=== PATIENT | female | born 1985 | race African-American/Black ===

== ENCOUNTER 2018-09-13 10:52 | Inpatient (IN) | payer OTHER ==
[~2018-09-13] VITALS: Ht 167.6 cm; Wt 69.4 kg
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
[2018-09-13] MEDS ORDERED: Z GUARD REMEDY 2 OZ OINT TP PRN ×2 (17:30→19:30)
[2018-09-13] MEDS ORDERED: HYDROCODONE/APAP 5/325MG 1 EACH TABLET PO PRN (17:30)
[2018-09-13] MEDS ORDERED: MAGNESIUM HYDROXIDE 30 ML UDC PO PRN ×2 (17:30→19:30)
[2018-09-13] MEDS ORDERED: MAG HYDROX/AL HYDROX/SIMETH 30 ML UDC PO PRN ×2 (17:30→19:30)
[2018-09-13 18:00] VITALS: BP 126/97
--- NOTE | 2018-09-13 18:13 | NUR ---
EYEGLASS MAKER/MED RECON PATIENT UNABLE TO PROVIDE INFO RE: HOME MEDICATION. NO INFO NOTED FROM ANY MEDICAL RECORDS SENT WITH THE PATIENT FROM [facility] [address] [facility]. PER PATIENT REQUEST, AUTHORIZATION FOR USE OR DISCLOSE OF HEALTH INFORMATION WAS FAXED TO [facility], SPOKE TO NURSING COPPER ROLLER HANDLER PRINTING FROM [facility] AND STATED "IT SAY'S NO MEDICATION REPORTED". PER PATIENT REQUEST, AUTHORIZATION FOR USE OR DISCLOSE OF HEALTH INFORMATION WAS FAXED TO [facility], SPOKE TO THE NURSING COPPER ROLLER HANDLER PRINTING AND STATED "CALL ON SATURDAY, MEDICAL RECORDS IS CLOSED TODAY". PER PATIENT REQUEST, CALLED [facility] AT [phone]. SPOKE TO STAFF AND STATED "PATIENT IS A NEW PATIENT, I CAN'T ACCESS ANY OF HER FILE OR RECORDS". PATIENT AND PRIMARY NURSE MADE AWARE. ALSO, PATIENT WAS NOTIFIED TO ASK FAMILY TO BRING MEDICATION SUPPLY FROM HOME.
[2018-09-13] MEDS ORDERED: ACETAMINOPHEN 325 MG TABLET PO PRN (19:30)
[2018-09-13] MEDS ORDERED: ONDANSETRON HCL/PF 4 MG/2 ML VIAL IVP PRN (19:30)
--- NOTE | 2018-09-13 19:37 | NUR ---
[employer] NOTES PT ENDORSED TO NOC NURSE FOR JUSTIN. ALL NEEDS ATTENDED TO. SEEN BY KELSEY OCHOA.
[2018-09-13 20:15] VITALS: BP 119/88
--- NOTE | 2018-09-13 20:18 | NUR ---
INTIAL NURSING NOTE: A/O X4 SITTING UP IN BED. TELE S/R 113. RIGHT UPPER CHEST WALL PERM A CATH, LEFT UPPER ARM SHUNT POSTIVE THRILL AND BRUIT. 1-1 FOR SAFETY . DIET REMAINS NPO FOR DX PANCREATITIS. C/O 7-10 PAIN REFUSING ORAL PAIN MEDS NO S/L . PT WAITING FOR MIDLINE PLACEMENT. TOP SIDERAILS UP CALL LIGHT WITHIN REACH. BED IN LOWEST POSIION WITH BED WHEELS LOCKED.
[2018-09-13] MEDS: MORPHINE SULFATE INJ 2 MG/ML DISP.SYRIN IV PRN (22:27)
[2018-09-13] MEDS: IV NS 0.9% 1,000 ML IV PRN (22:30)
--- NOTE | 2018-09-13 22:33 | NUR ---
MIDLINE RN: INSERTED 18GA MIDLINE TO RIGHT UPPER BRACHIAL BY MIDLINE NURSE BALDEMAR. ALSO, SHE CLEANED AND CHANGED THE PERM CATH DRESSING TO RIGHT UPPER CHEST WALL. IN FORMED TALENT MANAGEMENT MANAGER THAT THE TWO SUTURES HOLDING THE PERM CATH IN PLACED WERE DISCONNECTED FROM PT'S CHEST WALL. I WILL INFORM DAY SHIFT TO FORWARD TO ATTENDING.
--- NOTE | 2018-09-13 22:43 | NUR ---
NURSING: STARTED O2 @ 2 l N/C FOR 02 sAT ON R/A @ 92%. cHARGE NURSE ADMINISTERED mORPHINE 1 MG IVP FOR GENERAL PAIN 8-10. STARTED N.S. 0.9% @ 75CC HR TO RIGHT UPPER ARM MIDLINE. cURRENTLY C/O 2-10 PAIN AND RESTING COMFORTABLY.
[2018-09-14 00:10] VITALS: BP 122/82
--- NOTE | 2018-09-14 00:12 | NUR ---
Lying in bed eyes closed resp even and unlab resting comfortably. . Tele ST 110 IV N.S. 0.9% continues to infuse right upper arm midline 18ga without difficulty.
[2018-09-14 04:44] VITALS: BP 118/74
--- NOTE | 2018-09-14 04:46 | NUR ---
Nursing: remains lying in bed eyes closed resp even and unlab on o2 2L n/c. IV N.S. 0.9% infusing @ 75 cc hr to right upper arm midline without difficulty. 1-1 remains for safety. sSderails up Call light within reach.
--- NOTE | 2018-09-14 06:14 | NUR ---
NURSING: TELE SR 110 iv n.s. 0.9 % INFUSING @ 75 CC TO RIGHT UPPER ARM MIDLINE WITHOUT DIFFICULTY. REMAINS RESTING COMFORTABLY.
[2018-09-14] MEDS: MORPHINE SULFATE INJ 2 MG/ML DISP.SYRIN IV PRN ×4 (06:38→22:06)
[2018-09-14] MEDS: ONDANSETRON HCL/PF 4 MG/2 ML VIAL IVP PRN ×2 (06:38→14:19)
--- NOTE | 2018-09-14 06:40 | NUR ---
NURSING : AWAKE C/O 8-10 GENERALIZE PAIN AND NASEAU NOTIFIED CHARGE NURSE ADMINISTERED 1 MG MORPHINE IVP AND ZOFRAN 4MG IVP FLUSHED MIDLINE WITH N.S.. LAB HERE TO DRAW BLOOD. CHARGE NURSE REMOVED A COUPLE SYRINGES OF BLOOD AND GAVE TO THE HEADING MATCHER AND ASSEMBLER.
[2018-09-14 07:05] LABS: BASOPHILS # (AUTO) 0.1 /CMM (0.0-0.2); BASOPHILS % (AUTO) 0.5 % (0.0-2.0); HEMATOCRIT 36 % (33-45); HEMOGLOBIN 10.4 g/dL (11.5-14.8); LYMPHOCYTES # (AUTO) 0.9 /CMM (0.8-4.8); LYMPHOCYTES % (AUTO) 8.9 % (20.0-44.0); MEAN CORPUSCULAR HGB CONC 29 g/dl (31.0-36.0); MEAN CORPUSCULAR VOLUME 102 fL (82-100); MONOCYTES # (AUTO) 0.5 /CMM (0.1-1.30); MONOCYTES % (AUTO) 4.7 % (2.0-12.0); NEUTROPHILS # (AUTO) 8.7 /CMM (1.8-8.9); NEUTROPHILS % (AUTO) 85.9 % (43.0-81.0); PLATELET COUNT (AUTO) 115 /CMM (150-450); RED BLOOD CELL COUNT(AUTO) 3.52 MIL/uL (4.0-5.2); WHITE BLOOD COUNT (AUTO) 10.1 K/uL (4.3-11.0)
--- NOTE | 2018-09-14 07:30 | NUR ---
WELDER REPAIR AM NOTES PT IN BED, ASLEEP, AROUSES TO NAME AND TOUCH. ALERT.ORIENTED X 4, CALM, ON 2L O2 NASAL CANULA, ON AND OFF, PT REMOVES CANULA, NOW ON RA, O2 SAT AT 92%, RESPIRATION UNLABORED, SINUS TACH ON MONITOR HR 112, DENIES ANY PAIN OR DISCOMFORT, NS AT 75 ML/HR INFUSING TO RIGHT UPPER MIDLINE G 18, SITE CLEAR. NIMA SHUNT [+] THRILL/BRUIT, PORTACATH IN SITU RCW, DRESSING IN PLACE, MISSING 2 SECUREMENT SUTURES, ABDOMEN DISTENDED, FIRM, NON TENDER, HYPOACTIVE BOWEL SOUND. SEE NURSING FLOWHSEET FOR SKIN ISSUES, NPO PER DIAGNOSIS, BRP, SAFETY MEASURES IN PLACE, NO SUICIDAL IDEATION AT THIS TIME, BED LOW LOCKED, CALL LIGHT WITHIN REACH, PLAN OF CARE FOR TODAY DISCUSSED, 1:1 SITTER FOR PT'S SAFETY, WILL CONT TO MONITOR.
[2018-09-14 08:00] VITALS: BP 119/90
[2018-09-14] MEDS ORDERED: PANTOPRAZOLE 40 MG VIAL IV SCH (09:00)
[2018-09-14 09:32] LABS: BAND % (MANUAL) 1 % (0.0-5.0); LYMPHOCYTES % (MANUAL) 7 % (16-48); MONOCYTES % (MANUAL) 5 % (0-11.0); MYELOCYTES % 3 % (0-0); NEUTROPHILS % (MANUAL) 84 (42-76)
--- NOTE | 2018-09-14 10:14 | NUR ---
MOTOCROSS RACER NOTES BILL HD NURSE AT BEDSIDE. WILL START HD. CONSENT SIGNED.
--- NOTE | 2018-09-14 10:25 | NUR ---
LEAD PROGRAMMER ANALYST NOTES HOME MEDS LIST GIVEN TO MED RECON NURSE NURIA. ALSO SEEN BY DR. PUGH.
[2018-09-14 10:45] LABS: CALCIUM, SERUM 9.7 mg/dL (8.5-10.1); MAGNESIUM 2.5 mg/dL (1.8-2.4)
[2018-09-14 11:06] LABS: POTASSIUM 7.7 mmol/L (3.5-5.1)
[2018-09-14 11:07] LABS: CREATININE 11.5 mg/dL (0.6-1.3); PHOSPHORUS 13.8 mg/dL (2.5-4.9)
--- NOTE | 2018-09-14 11:10 | NUR ---
WORLDWIDE CHIEF CREATIVE OFFICER [facility] CRITICAL LAB RESULTS RELAYED TO DR. PUGH. NO NEW ORDERS RECEIVED. ONGOING HEMODIALYSIS. K = 7.7, CO2 = 9, BUN 110, CREA 11.5, PHOS 13.8
[2018-09-14] MEDS ORDERED: CALC0.253 PO (11:16)
[2018-09-14] MEDS ORDERED: LISI-603 PO (11:16)
[2018-09-14] MEDS ORDERED: FERR325T23 PO (11:16)
[2018-09-14] MEDS ORDERED: FOLI1TAB16 PO (11:16)
[2018-09-14] MEDS ORDERED: ACET-2605 PO (11:16)
[2018-09-14] MEDS ORDERED: FURO-144 PO (11:16)
[2018-09-14] MEDS ORDERED: LOSA25TA27 PO (11:16)
[2018-09-14] MEDS ORDERED: PANT40TA2 PO (11:16)
[2018-09-14 12:00] VITALS: BP 122/80
[2018-09-14] MEDS: IV NS 0.9% 1,000 ML IV PRN (12:45)
--- NOTE | 2018-09-14 13:18 | NUR ---
METAL MINE INSPECTOR NOTES HD COMPLETED. 3 LITERS OUTPUT
[2018-09-14] MEDS: SEVELAMER CARBONATE 0.8 GM POWD.PACK GT SCH ×2 (13:22→17:21)
--- NOTE | 2018-09-14 13:45 | NUR ---
SAMPLE SUPERVISOR NOTES PATIENT OUT OF BED WITH PHYSICAL THERAPIST.
[2018-09-14 16:00] VITALS: BP_SYST 112; BP_SYST 140; BP_SYST 149; BP_DIAS 76; BP_DIAS 80; BP_DIAS 90
--- NOTE | 2018-09-14 18:52 | NUR ---
TELE CLOSING NOTES ALL NEEDS MET, PATIENT RESTING COMFORTABLY. NOT IN ANY DISTRESS, ON 02 2LPM NASAL CANULA. DENIES SOB/CHEST PAIN. IVF INFUSING WELL, SITE CLEAR. PORTACATH RCW CDI DRESSING, NIMA AV SHUNT THRILL BRUIT PRESENT. REMAINS TACHYCARDIC HR 100s. NO OTHER SIGNIFICANT CHANGE IN CONDITION. SAFETY MESURES IN PLACE. CALL LIGHT WITHIN REACH. WILL ENDORSE TO NEXT SHIFT FOR JUSTIN.
--- NOTE | 2018-09-14 19:20 | NUR ---
MANAGER OFFICE NOTE PATIENT IS RESTING IN BED, AOX3, SITTER AT BEDSIDE, SPEECH CLEAR, ON 2L O2 VIA NC, DENIES ANY CARDIAC OR RESPIRATORY DISTRESS, BASIM MIDLINE WITH NS AT 75 ML/HR, PATENT FLUSHING WELL, NIMA SHUNT + THRILL/BRUIT, RCW PERMACATH, SAFETY MAINTAINED AT ALL TIMES, BED IN LOW LOCKED POSITION, WILL CONTINUE TO MONITOR FOR ANY CHANGES.
[2018-09-14] MEDS ORDERED: MISCELLANEOUS MED 1 EA EA PO PRN (19:30)
[2018-09-14] MEDS: ZOLPIDEM TARTRATE 5 MG TABLET PO PRN (19:57)
[2018-09-14 20:00] VITALS: BP 134/88
--- NOTE | 2018-09-14 20:59 | NUR ---
HOSTLER HELPER NOTE PT C/O ITCHING AND REQUESTING MEDICATION, PER BROCK NEW ORDER FOR BENADRYL 25MG PO Q6HR PRN FOR ITCH
[2018-09-14] MEDS: diphenhydrAMINE HCL ELIX 25 MG/10 ML UDC PO PRN (21:41)
[2018-09-15] VITALS (7 sets, daily range): BP systolic 125–151; BP diastolic 77–107
[2018-09-15] MEDS: MORPHINE SULFATE INJ 2 MG/ML DISP.SYRIN IV PRN ×3 (03:54→19:50)
[2018-09-15] MEDS: diphenhydrAMINE HCL ELIX 25 MG/10 ML UDC PO PRN ×2 (04:37→18:05)
[2018-09-15] MEDS: ONDANSETRON HCL/PF 4 MG/2 ML VIAL IVP PRN ×2 (04:40→08:34)
[2018-09-15] MEDS: SEVELAMER CARBONATE 0.8 GM POWD.PACK GT SCH ×3 (07:42→18:05)
[2018-09-15] MEDS: PANTOPRAZOLE 40 MG TABLET.DR PO SCH (07:42)
[2018-09-15] MEDS: FERROUS SULFATE (325 MG) 325 MG/TAB TABLET PO SCH ×2 (08:34→18:05)
[2018-09-15] MEDS: CALCITRIOL 0.25 MCG CAPSULE PO SCH (08:34)
[2018-09-15] MEDS: FOLIC ACID 1 MG TABLET PO SCH (08:34)
[2018-09-15] MEDS: FUROSEMIDE 40 MG TABLET PO SCH (08:34)
[2018-09-15] MEDS ORDERED: LISINOPRIL (20MG) 20 MG TABLET PO SCH (09:00)
[2018-09-15] MEDS: LOSARTAN POTASSIUM 25 MG TABLET PO SCH (09:45)
[2018-09-15] MEDS: UREA 10% -AHA 4% CREAM 57 GM TUBE TP SCH (10:04)
--- NOTE | 2018-09-15 14:03 | NUR ---
APPRAISER TIMBER OPENING NOTE PATIENT RECEIVED RESTING IN BED, AOX3, SITTER AT BEDSIDE, SPEECH CLEAR, ON 2L O2 VIA NC, DENIES ANY CARDIAC OR RESPIRATORY DISTRESS, BASIM MIDLINE WITH NS AT 75 ML/HR, PATENT FLUSHING WELL, NIMA SHUNT + THRILL/BRUIT, RCW PERMACATH, SAFETY MAINTAINED AT ALL TIMES, BED IN LOW LOCKED POSITION, WILL CONTINUE TO MONITOR FOR ANY CHANGES.
--- NOTE | 2018-09-15 19:47 | NUR ---
TELE-1/DAY CARE ATTENDANT REPORT TO MARICEL BROWNING FOR CONT OF CARE. ENDORSED TO HER MORPHINE 2MG FOR ADMINISTRATION TO THE PT.
--- NOTE | 2018-09-15 19:50 | NUR ---
RECEIVING AND PROCESSING SUPERVISOR NOTE, RECEIVED PATIENT FROM YULY CORRIGAN FOR CONTINUATION OF CARE, PATIENT RESTING IN BED, AOX3 C/O BACK PAIN AND ASKING FOR PAIN MEDICATION AT THIS TIME, WILL ADMINISTER ORDERED, BREATHING EVEN AND UNLABORED, NO SOB/ACUTE DISTRESS NOTED, ON 2L O2 VIA NC, WITH VS 129/85, 124, 98.5, 97%, 20, BASIM MIDLINE WITH NS AT 75 ML/HR, INFUSING WELL AND PATIENT TOLERATED WELL, NIMA SHUNT + THRILL/BRUIT, RCW PERMCATH, S/P HD TODAY WITH ZERO OUTPUT, SAFETY ENVIRONMENT PROVIDED AT ALL TIMES, SITTER AT BEDSIDE, BED IN LOW LOCKED POSITION, CALL LIGHT WITHIN REACH, WILL CONTINUE OT MONITOR CLOSELY.
--- NOTE | 2018-09-15 20:09 | NUR ---
HD COMPLETED TODAY W/O INCIDENT. 0 LITERS REMOVED. (NO FLUID REMOVED).
--- NOTE | 2018-09-15 20:10 | NUR ---
EDGE GRINDER CLOSING NOTE PATIENT RESTING IN BED, AOX3, SITTER AT BEDSIDE, SPEECH CLEAR, ON 2L O2 VIA NC, DENIES ANY CARDIAC OR RESPIRATORY DISTRESS, BASIM MIDLINE WITH NS AT 75 ML/HR, PATENT FLUSHING WELL, NIMA SHUNT + THRILL/BRUIT, RCW PERMACATH, HD COMPLETED TODAY WITH NO FLUID REMOVAL (0 LITER REMOVAL). SAFETY MAINTAINED AT ALL TIMES, BED IN LOW LOCKED POSITION, CALL LIGHT WITHIN REACH. CARE ENDORSED TO WELLNESS PROGRAM MANAGER RN.
[2018-09-15] MEDS: IV NS 0.9% 1,000 ML IV PRN (20:50)
[2018-09-15] MEDS: ZOLPIDEM TARTRATE 5 MG TABLET PO PRN (21:41)
[2018-09-16] VITALS: BP 115/92
[2018-09-16 01:58] VITALS: BP 115/92
[2018-09-16] MEDS: MORPHINE SULFATE INJ 2 MG/ML DISP.SYRIN IV PRN ×4 (02:00→19:43)
--- NOTE | 2018-09-16 02:02 | NUR ---
RN NOTES: PT COMPLAINING OF 10/10 BACK PAIN AND BILATERAL FEET (SOLE) PAIN. PT WAS ADMINISTERED MORPHINE 2MG IV. WILL CONTINUE TO MONITOR.
[2018-09-16 04:00] VITALS: BP 127/85
[2018-09-16 06:51] LABS: BASOPHILS % (AUTO) 0.5 % (0.0-2.0); CREATININE 6.2 mg/dL (0.6-1.3); EOSINOPHILS % (AUTO) 0.3 % (0.0-6.0); HEMATOCRIT 29 % (33-45); HEMOGLOBIN 9.2 g/dL (11.5-14.8); LYMPHOCYTES # (AUTO) 1.4 /CMM (0.8-4.8); LYMPHOCYTES % (AUTO) 19.3 % (20.0-44.0); MEAN CORPUSCULAR HGB CONC 32 g/dl (31.0-36.0); MEAN CORPUSCULAR VOLUME 92 fL (82-100); MONOCYTES # (AUTO) 0.5 /CMM (0.1-1.30); MONOCYTES % (AUTO) 7.5 % (2.0-12.0); NEUTROPHILS # (AUTO) 5.3 /CMM (1.8-8.9); NEUTROPHILS % (AUTO) 72.4 % (43.0-81.0); PLATELET COUNT (AUTO) 62 /CMM (150-450); POTASSIUM 3.9 mmol/L (3.5-5.1); RED BLOOD CELL COUNT(AUTO) 3.12 MIL/uL (4.0-5.2); WHITE BLOOD COUNT (AUTO) 7.3 K/uL (4.3-11.0)
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
--- NOTE | 2018-09-16 07:53 | NUR ---
WATER ATTENDANT NOTES, PATIENT IN BED ALERT ORIENTED , BREATHING EVEN AND UNLABORED, NO SOB/ACUTE DISTRESS NOTED, ON RA NO SOB NOTED AT THIS TIME ,BASIM MIDLINE WITH NS AT 75 ML/HR, INFUSING WELL AND PATIENT TOLERATED WELL, NIMA SHUNT WITH THRILL/BRUIT, RCW PERMCATH SAFETY ENVIRONMENT PROVIDED AT ALL TIMES, SITTER AT BEDSIDE, BED IN LOW LOCKED POSITION, CALL LIGHT WITHIN REACH,ON TELE MONITOR ST 130 WILL CONT TO MONITOR CLOSELY
[2018-09-16] MEDS: PANTOPRAZOLE 40 MG TABLET.DR PO SCH (07:58)
[2018-09-16] MEDS: SEVELAMER CARBONATE 0.8 GM POWD.PACK GT SCH ×3 (07:59→17:22)
[2018-09-16 08:00] VITALS: BP_SYST 115; BP_SYST 130; BP_DIAS 70; BP_DIAS 94
[2018-09-16] MEDS: FOLIC ACID 1 MG TABLET PO SCH (08:00)
[2018-09-16] MEDS: LOSARTAN POTASSIUM 25 MG TABLET PO SCH (08:02)
[2018-09-16] MEDS: FERROUS SULFATE (325 MG) 325 MG/TAB TABLET PO SCH ×2 (08:03→16:17)
[2018-09-16] MEDS: CALCITRIOL 0.25 MCG CAPSULE PO SCH (08:04)
[2018-09-16] MEDS: UREA 10% -AHA 4% CREAM 57 GM TUBE TP SCH (08:04)
[2018-09-16] MEDS: ONDANSETRON HCL/PF 4 MG/2 ML VIAL IVP PRN ×2 (08:12→17:46)
[2018-09-16] MEDS: FUROSEMIDE 40 MG TABLET PO SCH (08:12)
--- NOTE | 2018-09-16 08:57 | NUR ---
WOUND CARE CONSULT: PT PRESENTS WITH DRY SKIN AND DRY SCAB ON RT WRIST, PRESENT ON ADMISSION. PT IS INDEPENDENT WITH BED MOBILITY AND CONTINENT. PT TENDS TO SCRATCH HER SKIN. RECOMMENDATIONS MADE FOR SKIN PROTECTION AND DISCUSSED WITH NURSING STAFF. WILL SEE PRN. STAHL IN AGREEMENT WITH PLAN OF CARE. Addendum: 09/16/18 at 0901 by SUDHAKAR DELGADO RN Amended: Links added.
[2018-09-16] MEDS ORDERED: MINERAL OIL/PETROLATUM,WHITE 120 GM JAR TP PRN (09:00)
[2018-09-16 09:32] LABS: LYMPHOCYTES % (MANUAL) 19 % (16-48); MONOCYTES % (MANUAL) 4 % (0-11.0); NEUTROPHILS % (MANUAL) 77 (42-76)
--- NOTE | 2018-09-16 09:45 | NUR ---
MS RN NOTE PT DONE ORDERED ABLE TO AMBULATE WELL WITH WALKER, TAKEN TO CT TO DO CT ABDOMEN WILL F\U
--- NOTE | 2018-09-16 10:38 | NUR ---
MS RN NOTE DR GIRON NOTIFIED THAT HR ST 127-130 ,NO NEW ORDER GIVEN AT THIS TIME
--- NOTE | 2018-09-16 14:00 | NUR ---
ms rn note seda rn seat installer notified ct abdomen result with free fluids no new order given at this time
[2018-09-16] MEDS: diphenhydrAMINE HCL ELIX 25 MG/10 ML UDC PO PRN ×2 (15:06→20:23)
--- NOTE | 2018-09-16 15:18 | NUR ---
ms rn note c\o itchiness on body Benadryl po given as ordered, will f\u
[2018-09-16 16:00] VITALS: BP 115/70
--- NOTE | 2018-09-16 17:27 | NUR ---
ms rn note having dinner , able to eat self , all needs attended ,not in distress
--- NOTE | 2018-09-16 18:20 | NUR ---
MS RN NOTE C\O NAUSEA, ZOFRAN IVP GIVEN [id number] ,WILL F\U
--- NOTE | 2018-09-16 18:49 | NUR ---
ms rn note feeling nanous better also reported to seda jimenez manager inpatient procalcitonin 8.3, stated that will order atb and moe jimenez manager inpatient id will check patient
--- NOTE | 2018-09-16 19:25 | NUR ---
RN NOTES, PATIENT IN BED AWAKE A/O X4 ABLE TO VERBALIZED NEEDS AND CONCERNS, BREATHING EVEN AND UNLABORED, NO SOB/ACUTE DISTRESS NOTED, C/O BACK PAIN AT THIS TIEM, WILL ADMINISTER MEDICATION ORDERED, ON 2L O2 VIA NC, BASIM MIDLINE PATENT AND INTACT, NIMA SHUNT + THRILL/BRUIT, RCW PERMCATH, SAFETY ENVIRONMENT PROVIDED AT ALL TIMES, SITTER AT BEDSIDE, BED IN LOW LOCKED POSITION, CALL LIGHT WITHIN REACH, WILL CONTINUE TO MONITOR CLOSELY. Addendum: 09/16/18 at 2316 by MARICEL ARMENTA RN CORRECT INFORMATION HD CATHETER, NO RCW PERM CATH
[2018-09-16 20:00] VITALS: BP 123/87
[2018-09-16] MEDS: MEROPENEM 500 MG in IV NS 0.9% 50 ML IV SCH (20:15)
[2018-09-17] MEDS: MORPHINE SULFATE INJ 2 MG/ML DISP.SYRIN IV PRN ×2 (01:24→06:47)
[2018-09-17 04:00] VITALS: BP 128/89
--- NOTE | 2018-09-17 06:42 | NUR ---
RN NOTES, PATIENT IN BED AWAKE A/O X4 ABLE TO VERBALIZED NEEDS AND CONCERNS, BREATHING EVEN AND UNLABORED, NO SOB/ACUTE DISTRESS NOTED, C/O BACK PAIN AT THIS TIME, WILL ADMINISTER MEDICATION MORPHINE ORDERED, ON 2L O2 VIA NC, BASIM MIDLINE PATENT AND INTACT, NIMA SHUNT + THRILL/BRUIT,RIGHT CHEST HD CATHETER INTACT, SAFETY ENVIRONMENT PROVIDED AT ALL TIMES, SITTER AT BEDSIDE AT ALL TIMES, BED IN LOW LOCKED POSITION, NO SIGNIFICANT CHANGE IN CONDITION, CALL LIGHT WITHIN REACH, WILL ENDORSE CONTINUITY OF CARE TO ONCOMING NURSE.
[2018-09-17 06:48] LABS: BASOPHILS % (AUTO) 0.5 % (0.0-2.0); EOSINOPHILS % (AUTO) 0.5 % (0.0-6.0); HEMATOCRIT 30 % (33-45); HEMOGLOBIN 9.6 g/dL (11.5-14.8); LYMPHOCYTES # (AUTO) 1.5 /CMM (0.8-4.8); LYMPHOCYTES % (AUTO) 22.6 % (20.0-44.0); MEAN CORPUSCULAR HGB CONC 32 g/dl (31.0-36.0); MEAN CORPUSCULAR VOLUME 92 fL (82-100); MONOCYTES # (AUTO) 0.5 /CMM (0.1-1.30); MONOCYTES % (AUTO) 7.4 % (2.0-12.0); NEUTROPHILS # (AUTO) 4.4 /CMM (1.8-8.9); PLATELET COUNT (AUTO) 66 /CMM (150-450); RED BLOOD CELL COUNT(AUTO) 3.24 MIL/uL (4.0-5.2); WHITE BLOOD COUNT (AUTO) 6.4 K/uL (4.3-11.0)
[2018-09-17 07:02] LABS: ALBUMIN 2.8 g/dL (3.4-5.0); BILIRUBIN,TOTAL 1.3 mg/dL (0.2-1.0); CALCIUM, SERUM 9.5 mg/dL (8.5-10.1); MAGNESIUM 2.1 mg/dL (1.8-2.4); POTASSIUM 5.1 mmol/L (3.5-5.1); TOTAL PROTEIN, SERUM 6.6 g/dL (6.4-8.2)
[2018-09-17 07:03] LABS: CREATININE 7.6 mg/dL (0.6-1.3)
--- NOTE | 2018-09-17 07:20 | NUR ---
RN MS OPENING NOTES RECEIVED REPORT FROM MACHINE ADJUSTER LEADER RN. PATIENT IN BED AWAKE A/O X4 ABLE TO VERBALIZED NEEDS AND CONCERNS, BREATHING EVEN AND UNLABORED, NO SOB/ACUTE DISTRESS NOTED, DENIES PAIN AT PRESENT TIME MORPHINE GIVEN BY MACHINE ADJUSTER LEADER RN. ORDERED, ON 2L O2 VIA NC, BASIM MIDLINE PATENT AND INTACT, NIMA SHUNT + THRILL/BRUIT,RIGHT CHEST HD CATHETER INTACT, SAFETY ENVIRONMENT PROVIDED AT ALL TIMES, SITTER AT BEDSIDE AT ALL TIMES, BED IN LOW LOCKED POSITION, NO SIGNIFICANT CHANGE IN CONDITION, CALL LIGHT WITHIN REACH, WILL CONTINUE TO MONITOR.
[2018-09-17 08:00] VITALS: BP 137/101
[2018-09-17] MEDS: PANTOPRAZOLE 40 MG TABLET.DR PO SCH (08:25)
[2018-09-17] MEDS: MEROPENEM 500 MG in IV NS 0.9% 50 ML IV SCH ×2 (08:39→22:46)
[2018-09-17] MEDS: SEVELAMER CARBONATE 0.8 GM POWD.PACK GT SCH ×4 (08:39→17:15)
[2018-09-17 08:48] LABS: EOSINOPHILS % (MANUAL) 1 % (0-4); LYMPHOCYTES % (MANUAL) 18 % (16-48); MONOCYTES % (MANUAL) 6 % (0-11.0); NEUTROPHILS % (MANUAL) 75 (42-76)
[2018-09-17] MEDS: FOLIC ACID 1 MG TABLET PO SCH (09:46)
[2018-09-17] MEDS: FERROUS SULFATE (325 MG) 325 MG/TAB TABLET PO SCH ×2 (09:46→17:15)
[2018-09-17] MEDS: FUROSEMIDE 40 MG TABLET PO SCH (09:46)
[2018-09-17] MEDS: CALCITRIOL 0.25 MCG CAPSULE PO SCH (09:47)
[2018-09-17] MEDS: LOSARTAN POTASSIUM 25 MG TABLET PO SCH (09:47)
[2018-09-17] MEDS: UREA 10% -AHA 4% CREAM 57 GM TUBE TP SCH (09:48)
[2018-09-17 12:00] VITALS: BP 137/101
[2018-09-17] MEDS: ONDANSETRON HCL/PF 4 MG/2 ML VIAL IVP PRN (12:00)
[2018-09-17] MEDS ORDERED: oxyCODONE/APAP (5/325 MG) 1 UDTAB TABLET PO PRN (12:00)
[2018-09-17] MEDS: HYDROMORPHONE 1 MG/1 ML DISP.SYRIN IV PRN ×3 (13:03→22:59)
--- NOTE | 2018-09-17 13:10 | NUR ---
RN MS NOTES PT VOMITED TWICE. ZOFRAN WAS GIVEN PRIOR TO VOMITING EPISODE. AFTER PT THREW UP SHE SAID SHE WANTED TO SLEEP. WHEN PT WOKE UP STATED SHE NO LONGER FELT NAUSEOUS, BUT REQUESTED MORE PAIN MEDICATION.
[2018-09-17 16:00] VITALS: BP 135/100
--- NOTE | 2018-09-17 17:45 | NUR ---
PT HAD ANOTHER EPISODE OF VOMITING CLAIMS IT IS DUE TO THE SMELL OF ROOMMATE IS REQUESTING TO BE MOVED TO A DIFFERENT ROOM. CHARGE NURSE AWARE.
--- NOTE | 2018-09-17 19:00 | NUR ---
RN CLOSING NOTES GAVE REPORT TO POULTRY EVISCERATOR RN. PATIENT IN BED AWAKE A/O X4 ABLE TO VERBALIZED NEEDS AND CONCERNS, BREATHING EVEN AND UNLABORED, NO SOB/ACUTE DISTRESS NOTED, DENIES PAIN AT PRESENT TIME DILAUDID GIVEN BY EARLIER IN SHIFT.BASIM MIDLINE PATENT AND INTACT, NIMA SHUNT + THRILL/BRUIT,RIGHT CHEST HD CATHETER INTACT, SAFETY ENVIRONMENT PROVIDED AT ALL TIMES, SITTER AT BEDSIDE AT ALL TIMES, BED IN LOW LOCKED POSITION, PT IS HAVING EPISODES OF VOMITING AND IS CLAIMING IT IS DUE TO SMELL OF ROOM, CALL LIGHT WITHIN REACH, WILL ENDORSE CONTINUITY OF CARE TO POULTRY EVISCERATOR RN
[2018-09-17 20:00] VITALS: BP 132/95
--- NOTE | 2018-09-17 20:00 | NUR ---
RN MS NOTES: RECEIVED PT. SLEEPING IN BED W/ HER RIGHT THUMB SUCKING IN HER MOUTH. NOT IN ANY DISTRESS. AWAKE A/O X 3. ABLE TO VERBALIZED NEEDS AND CONCERNS. C/O OF PAIN W/ PRN GIVEN ORDERED. BASIM MIDLINE PATENT AND INTACT W/ NO S/S OF INFECTION/INFILTRATION NOTED. NIMA SHUNT + THRILL/BRUIT AND RIGHT CHEST HD CATHETER INTACT. HD WAS FINISHED AT 2230 W/ 2 L OUT. SAFETY ENVIRONMENT PROVIDED AT ALL TIMES, SITTER AT BEDSIDE AT ALL TIMES, BED IN LOW LOCKED POSITION, NO SIGNIFICANT CHANGE IN CONDITION, CALL LIGHT WITHIN REACH, WILL CONTINUE TO MONITOR.
[2018-09-17] MEDS: ZOLPIDEM TARTRATE 5 MG TABLET PO PRN (23:02)
[2018-09-18] VITALS: BP 132/95
[2018-09-18] MEDS: ACETAMINOPHEN 325 MG TABLET PO PRN (03:21)
[2018-09-18] MEDS: HYDROMORPHONE 1 MG/1 ML DISP.SYRIN IV PRN ×4 (03:26→21:40)
[2018-09-18 04:00] VITALS: BP 124/80
[2018-09-18] MEDS: ONDANSETRON HCL/PF 4 MG/2 ML VIAL IVP PRN ×5 (06:58→17:46)
--- NOTE | 2018-09-18 07:21 | NUR ---
RN/MS NOTES: REPORT GIVEN TO NEXT SHIFT NURSE FOR JUSTIN.
[2018-09-18] MEDS: PANTOPRAZOLE 40 MG TABLET.DR PO SCH (07:45)
[2018-09-18] MEDS: SEVELAMER CARBONATE 0.8 GM POWD.PACK GT SCH ×3 (07:45→17:46)
[2018-09-18 08:00] VITALS: BP 143/98
[2018-09-18] MEDS: MEROPENEM 500 MG in IV NS 0.9% 50 ML IV SCH ×2 (08:31→20:08)
[2018-09-18] MEDS: CALCITRIOL 0.25 MCG CAPSULE PO SCH (08:48)
[2018-09-18] MEDS: FOLIC ACID 1 MG TABLET PO SCH (08:48)
[2018-09-18] MEDS: FERROUS SULFATE (325 MG) 325 MG/TAB TABLET PO SCH ×2 (08:48→17:46)
[2018-09-18] MEDS: FUROSEMIDE 40 MG TABLET PO SCH (08:48)
[2018-09-18 08:49] LABS: BASOPHILS % (AUTO) 0.7 % (0.0-2.0); EOSINOPHILS % (AUTO) 0.8 % (0.0-6.0); HEMATOCRIT 29 % (33-45); LYMPHOCYTES # (AUTO) 1.1 /CMM (0.8-4.8); LYMPHOCYTES % (AUTO) 20.7 % (20.0-44.0); MEAN CORPUSCULAR HGB CONC 31 g/dl (31.0-36.0); MEAN CORPUSCULAR VOLUME 94 fL (82-100); MONOCYTES # (AUTO) 0.4 /CMM (0.1-1.30); MONOCYTES % (AUTO) 7.7 % (2.0-12.0); NEUTROPHILS # (AUTO) 3.9 /CMM (1.8-8.9); NEUTROPHILS % (AUTO) 70.1 % (43.0-81.0); PLATELET COUNT (AUTO) 75 /CMM (150-450); RED BLOOD CELL COUNT(AUTO) 3.05 MIL/uL (4.0-5.2); WHITE BLOOD COUNT (AUTO) 5.6 K/uL (4.3-11.0)
[2018-09-18] MEDS: SERTRALINE HCL 25 MG TABLET PO SCH (08:49)
[2018-09-18 08:55] LABS: CALCIUM, SERUM 9.3 mg/dL (8.5-10.1); CREATININE 6.9 mg/dL (0.6-1.3); POTASSIUM 5.1 mmol/L (3.5-5.1)
[2018-09-18] MEDS: LOSARTAN POTASSIUM 25 MG TABLET PO SCH (08:56)
[2018-09-18 09:02] LABS: BILIRUBIN,TOTAL 1.4 mg/dL (0.2-1.0); MAGNESIUM 2.1 mg/dL (1.8-2.4); PHOSPHORUS 6.1 mg/dL (2.5-4.9); TOTAL PROTEIN, SERUM 6.9 g/dL (6.4-8.2)
[2018-09-18] MEDS: UREA 10% -AHA 4% CREAM 57 GM TUBE TP SCH (09:23)
[2018-09-18 09:42] LABS: LYMPHOCYTES % (MANUAL) 15 % (16-48); MONOCYTES % (MANUAL) 9 % (0-11.0); NEUTROPHILS % (MANUAL) 76 (42-76)
--- NOTE | 2018-09-18 10:15 | NUR ---
MS RN OPENING NOTES RECEIVED PAITIENT IN BED AWAKE A/O X4 ABLE TO VERBALIZED NEEDS AND CONCERNS, BREATHING EVEN AND UNLABORED, NO SOB/ACUTE DISTRESS NOTED, DENIES PAIN AT PRESENT TIME MORPHINE GIVEN BY PHOSPHATIC FERTILIZER SUPERVISOR RN. ORDERED, ON 2L O2 VIA NC, BASIM MIDLINE PATENT AND INTACT, NIMA SHUNT + THRILL/BRUIT,RIGHT CHEST HD CATHETER INTACT, SAFETY ENVIRONMENT PROVIDED AT ALL TIMES, SITTER AT BEDSIDE AT ALL TIMES, BED IN LOW LOCKED POSITION, NO SIGNIFICANT CHANGE IN CONDITION, CALL LIGHT WITHIN REACH, WILL CONTINUE TO MONITOR.
[2018-09-18 16:00] VITALS: BP 148/88
[2018-09-18 17:05] LABS: ALBUMIN 3.1 g/dL (3.4-5.0); BILIRUBIN,DIRECT 0.8 mg/dL (0.0-0.2); BILIRUBIN,TOTAL 1.4 mg/dL (0.2-1.0); TOTAL PROTEIN, SERUM 6.9 g/dL (6.4-8.2)
--- NOTE | 2018-09-18 18:00 | NUR ---
MS RN NOTE PARACENTESIS COMPLETED W/O INCIDENT. 1100 CC REMOVED. MD LAB ORDERS MADE AND RELAYED TO LABORATORY. LAB TOLD TO KEEP FLUID THAT IS NOT SENT OUT PER MD REQUEST.
[2018-09-18 18:13] LABS: C-REACTIVE PROTEIN 7.5 mg/dL (0.0-0.9)
--- NOTE | 2018-09-18 19:51 | NUR ---
MS RN CLOSING NOTES PAIIENT IN BED AWAKE A/O X4 ABLE TO VERBALIZED NEEDS AND CONCERNS, BREATHING EVEN AND UNLABORED, NO SOB/ACUTE DISTRESS NOTED, DENIES PAIN AT PRESENT TIME MORPHINE GIVEN BY ELECTRONICS PROCESSING SUPERVISOR RN. ORDERED, ON 2L O2 VIA NC, BASIM MIDLINE PATENT AND INTACT, NIMA SHUNT + THRILL/BRUIT,RIGHT CHEST HD CATHETER INTACT, PARACENTESIS COMPLETED TODAY W/ 1100CC REMOVED. ABD FLUID LABS ORDERED. NO SIGNIFICANT CHANGES THROUGHOUT SHIFT. SAFETY MEASURES IN PLACE, SITTER AT BEDSIDE AT ALL TIMES, BED IN LOW LOCKED POSITION,CALL LIGHT WITHIN REACH, CARE ENDORSED TO ELECTRONICS PROCESSING SUPERVISOR RN.
[2018-09-18 20:00] VITALS: BP 134/79
--- NOTE | 2018-09-18 20:00 | NUR ---
RN MS NOTES: RECEIVED PT. SLEEPING IN BED W/ SHEET COVERED OVER THE HEAD. CALLED HER NAME AND PT. REMOVED THE SHEET. NOT IN ANY DISTRESS. AWAKE A/O X 3. ABLE TO VERBALIZED NEEDS AND CONCERNS. C/O OF PAIN W/ PRN GIVEN ORDERED. BASIM MIDLINE PATENT AND INTACT W/ NO S/S OF INFECTION/INFILTRATION NOTED. NIMA SHUNT + THRILL/BRUIT AND RIGHT CHEST HD CATHETER INTACT. HAD PARACENTESIS RLQ W/ 1200 ML OUT. SAFETY ENVIRONMENT PROVIDED AT ALL TIMES, SITTER AT BEDSIDE AT ALL TIMES, BED IN LOW LOCKED POSITION, NO SIGNIFICANT CHANGE IN CONDITION, CALL LIGHT WITHIN REACH, WILL CONTINUE TO MONITOR.
[2018-09-18] MEDS: ZOLPIDEM TARTRATE 5 MG TABLET PO PRN (22:31)
[2018-09-19 04:00] VITALS: BP 130/80
[2018-09-19] MEDS: HYDROMORPHONE 1 MG/1 ML DISP.SYRIN IV PRN ×2 (04:21→09:36)
[2018-09-19] MEDS ORDERED: BISACODYL SUPP (10 MG) 10 MG/SUPP.RECT SUPP.RECT RC PRN (04:30)
[2018-09-19] MEDS: GUAIFENESIN/D-METHORPHAN HB 5 ML UDC PO PRN (04:52)
--- NOTE | 2018-09-19 07:10 | NUR ---
RN/MS NOTES: REPORT GIVEN TO AM NURSE FOR JUSTIN.
[2018-09-19 07:25] LABS: BASOPHILS % (AUTO) 0.8 % (0.0-2.0); EOSINOPHILS % (AUTO) 0.9 % (0.0-6.0); HEMATOCRIT 29 % (33-45); HEMOGLOBIN 9.3 g/dL (11.5-14.8); LYMPHOCYTES # (AUTO) 0.7 /CMM (0.8-4.8); LYMPHOCYTES % (AUTO) 14.2 % (20.0-44.0); MEAN CORPUSCULAR HGB CONC 32 g/dl (31.0-36.0); MEAN CORPUSCULAR VOLUME 93 fL (82-100); MONOCYTES # (AUTO) 0.4 /CMM (0.1-1.30); MONOCYTES % (AUTO) 7.1 % (2.0-12.0); NEUTROPHILS # (AUTO) 3.9 /CMM (1.8-8.9); PLATELET COUNT (AUTO) 93 /CMM (150-450); RED BLOOD CELL COUNT(AUTO) 3.14 MIL/uL (4.0-5.2)
[2018-09-19 07:32] LABS: CALCIUM, SERUM 9.5 mg/dL (8.5-10.1); MAGNESIUM 2.3 mg/dL (1.8-2.4); POTASSIUM 4.9 mmol/L (3.5-5.1)
[2018-09-19 07:37] LABS: CREATININE 8.3 mg/dL (0.6-1.3)
[2018-09-19 08:00] VITALS: BP 112/78
[2018-09-19 08:54] LABS: EOSINOPHILS % (MANUAL) 1 % (0-4); LYMPHOCYTES % (MANUAL) 12 % (16-48); MONOCYTES % (MANUAL) 6 % (0-11.0); NEUTROPHILS % (MANUAL) 81 (42-76)
[2018-09-19] MEDS: UREA 10% -AHA 4% CREAM 57 GM TUBE TP SCH (09:00)
[2018-09-19] MEDS: PANTOPRAZOLE 40 MG TABLET.DR PO SCH (09:37)
[2018-09-19] MEDS: CALCITRIOL 0.25 MCG CAPSULE PO SCH (09:37)
[2018-09-19] MEDS: FOLIC ACID 1 MG TABLET PO SCH (09:37)
[2018-09-19] MEDS: FERROUS SULFATE (325 MG) 325 MG/TAB TABLET PO SCH ×2 (09:37→16:35)
[2018-09-19] MEDS: LOSARTAN POTASSIUM 25 MG TABLET PO SCH (09:38)
[2018-09-19] MEDS: SERTRALINE HCL 25 MG TABLET PO SCH (09:38)
[2018-09-19] MEDS: MEROPENEM 500 MG in IV NS 0.9% 50 ML IV SCH (09:40)
--- NOTE | 2018-09-19 10:06 | NUR ---
MS/RN NOTES CALLED FINANCIAL OPERATIONS CLERK. BROCK, ABOUT FOOD STATED CONTINUE NPO AT THIS TIME. EXPLAINED TO THE PATIENT FINANCIAL OPERATIONS CLERK. STATED SHE WILL TALK TO PATIENT SOON ABOUT HER CONDITION.
[2018-09-19] MEDS: SEVELAMER CARBONATE 0.8 GM POWD.PACK GT SCH ×3 (10:13→17:15)
--- NOTE | 2018-09-19 10:50 | NUR ---
MS/RN NOTES BROCK COACH MECHANIC, AT BEDSIDE W/ ORDER TO START RENAL DIET FOR PATIENT, AT THIS TIME, WILL CONTINUE TO MONITOR.
--- NOTE | 2018-09-19 11:12 | NUR ---
MS/[id number] DIALYSIS NURSE ARRIVED AND WILL DIALYIZE PATIENT.
[2018-09-19] MEDS: diphenhydrAMINE HCL ELIX 25 MG/10 ML UDC PO PRN (12:20)
--- NOTE | 2018-09-19 12:38 | NUR ---
SPOKE WITH RN REGARDING CT ABDOMEN PELVIS WITH AND WITHOUT CONTRAST. PATIENT IS CURRENTLY GETTING DIALYZED; BUT DIALYSIS MUST BE DONE WITHIN [address] CONTRAST STUDY. NEXT SCHEDULED DIALYSIS IS SATURDAY. ALSO AWAITING CONSENT.
[2018-09-19 13:38] LABS: BILIRUBIN,DIRECT 0.7 mg/dL (0.0-0.2); BILIRUBIN,TOTAL 1.3 mg/dL (0.2-1.0)
--- NOTE | 2018-09-19 15:00 | NUR ---
MS BROWNING NOTE SEEN BY JESSEE BROWNING LIQUID SUGAR MELTER GI WITH ORDER NPO TILL CT RESULT WILL BE DONE
[2018-09-19 16:00] VITALS: BP 135/85
--- NOTE | 2018-09-19 16:23 | NUR ---
MS RN NOTE HD COMPLETED 3L OF FLUIDS REMOVED BP 135/85 HR 126
[2018-09-19] MEDS ORDERED: IOHEXOL-300 100 ML VIAL IV ONE (16:59)
--- NOTE | 2018-09-19 17:05 | NUR ---
MS/RN NOTES PATIENT WAS TAKEN TO CT.
--- NOTE | 2018-09-19 18:57 | NUR ---
MS/RN NOTES SPOKE TO NP. HOOKS, DISCUSS CT SCAN RESULTS AND STATED OKAY TO RESTART RENAL DIET. PATIENT NOTIFIED
[2018-09-19 20:00] VITALS: BP 126/92
--- NOTE | 2018-09-19 20:00 | NUR ---
RN/MS NOTES: RECEIVED PT. AWAKE IN BED. NOT IN ANY DISTRESS. AWAKE A/O X 3. ABLE TO VERBALIZED NEEDS AND CONCERNS. REQUESTED MEDS FOR SLEEP. PRN GIVEN. BASIM MIDLINE PATENT AND INTACT W/ NO S/S OF INFECTION/INFILTRATION NOTED. NIMA SHUNT + THRILL/BRUIT AND RIGHT CHEST HD CATHETER INTACT. HAD DIALYSIS TODAY. SAFETY ENVIRONMENT PROVIDED AT ALL TIMES, SITTER AT BEDSIDE AT ALL TIMES, BED IN LOW LOCKED POSITION, NO SIGNIFICANT CHANGE IN CONDITION, CALL LIGHT WITHIN REACH, WILL CONTINUE TO MONITOR.
[2018-09-19] MEDS: ZOLPIDEM TARTRATE 5 MG TABLET PO PRN (21:42)
[2018-09-20 04:00] VITALS: BP 107/77
--- NOTE | 2018-09-20 07:30 | NUR ---
MS RN OPENING NOTES: RECEIVED REPORT FROM PM NURSE. AWAKE IN BED. NO SOB NO DISTRESS NOTED AT THIS TIME. AWAKE A/O X 3. ABLE TO VERBALIZED NEEDS AND CONCERNS. BASIM MIDLINE PATENT AND INTACT W/ NO S/S OF INFECTION/INFILTRATION NOTED. RIGHT CHEST HD CATHETER INTACT. SAFETY PRECAUTIONS IN PLACE.SITTER AT BEDSIDE . BED IN LOW LOCKED POSITION.SRX2.CALL LIGHT IN REACH.WILL CONTINUE TO MONITOR.
[2018-09-20] MEDS: PANTOPRAZOLE 40 MG TABLET.DR PO SCH (07:34)
[2018-09-20 08:00] VITALS: BP 102/73
[2018-09-20 08:08] LABS: IMMUNOGLOBULIN A, SERUM 226 mg/dL (87-352); IMMUNOGLOBULIN G, SERUM 1632 mg/dL (700-1600); IMMUNOGLOBULIN M, SERUM 51 mg/dL (26-217)
[2018-09-20] MEDS: FERROUS SULFATE (325 MG) 325 MG/TAB TABLET PO SCH ×2 (08:10→17:39)
[2018-09-20] MEDS: FOLIC ACID 1 MG TABLET PO SCH (08:10)
[2018-09-20] MEDS: SEVELAMER CARBONATE 0.8 GM POWD.PACK GT SCH ×3 (08:10→17:38)
[2018-09-20] MEDS: LOSARTAN POTASSIUM 25 MG TABLET PO SCH (08:10)
[2018-09-20] MEDS: CALCITRIOL 0.25 MCG CAPSULE PO SCH (08:10)
[2018-09-20] MEDS: SERTRALINE HCL 25 MG TABLET PO SCH (08:10)
[2018-09-20] MEDS: UREA 10% -AHA 4% CREAM 57 GM TUBE TP SCH (08:12)
[2018-09-20 08:14] LABS: BASOPHILS % (AUTO) 0.2 % (0.0-2.0); EOSINOPHILS % (AUTO) 0.8 % (0.0-6.0); HEMATOCRIT 29 % (33-45); HEMOGLOBIN 9.5 g/dL (11.5-14.8); LYMPHOCYTES # (AUTO) 0.5 /CMM (0.8-4.8); LYMPHOCYTES % (AUTO) 10.6 % (20.0-44.0); MEAN CORPUSCULAR HGB CONC 33 g/dl (31.0-36.0); MEAN CORPUSCULAR VOLUME 92 fL (82-100); MONOCYTES # (AUTO) 0.3 /CMM (0.1-1.30); MONOCYTES % (AUTO) 7.1 % (2.0-12.0); NEUTROPHILS # (AUTO) 3.6 /CMM (1.8-8.9); NEUTROPHILS % (AUTO) 81.3 % (43.0-81.0); PLATELET COUNT (AUTO) 89 /CMM (150-450); RED BLOOD CELL COUNT(AUTO) 3.17 MIL/uL (4.0-5.2); WHITE BLOOD COUNT (AUTO) 4.4 K/uL (4.3-11.0)
[2018-09-20 08:40] LABS: ALBUMIN 2.3 g/dL (3.4-5.0); BILIRUBIN,TOTAL 1.2 mg/dL (0.2-1.0); CALCIUM, SERUM 8.9 mg/dL (8.5-10.1); CREATININE 6.6 mg/dL (0.6-1.3); MAGNESIUM 2.1 mg/dL (1.8-2.4); PHOSPHORUS 4.5 mg/dL (2.5-4.9); POTASSIUM 4.2 mmol/L (3.5-5.1); TOTAL PROTEIN, SERUM 5.8 g/dL (6.4-8.2)
[2018-09-20 08:47] LABS: BAND % (MANUAL) 2 % (0.0-5.0); EOSINOPHILS % (MANUAL) 1 % (0-4); LYMPHOCYTES % (MANUAL) 9 % (16-48); MONOCYTES % (MANUAL) 8 % (0-11.0); NEUTROPHILS % (MANUAL) 80 (42-76)
[2018-09-20 10:12] LABS: CARBOHYDRATE AG 19-9 23 U/mL (0-35)
[2018-09-20] MEDS: GUAIFENESIN/D-METHORPHAN HB 5 ML UDC PO PRN (12:40)
--- NOTE | 2018-09-20 14:00 | NUR ---
MS RN NOTE PATIENT TEMP 99.9F,OFFERED TYLENOL.PATIENT REFUSED.ICE PACK GIVEN FOR COLD APPLICATION.
--- NOTE | 2018-09-20 14:00 | NUR ---
MS RN NOTE SEEN BY KELSEY ZARCO,UPDATED ABOUT PATIENT CONDITION WITH LABS,ELEVATED LIPASE AND AMYLASE.ALSO ABOUT CARDIOMEGALY IN CT SCAN AND NO CARDIOLOGY ON BOARD AND NO CARDIOLOGY WORK UP.GOT NEW ORDERS.WILL CONTINUE TO MONITOR.
--- NOTE | 2018-09-20 15:32 | NUR ---
RN NOTE: HAROLDO GUTIÉRREZ NP WAS MADE AWARE OF THE PRELIMINARY RESULT OF THE ECHOCARDIOGRAM EF= 15-20%. PER HAROLDO, SHE WILL INFORM DR. LY (CAREER TRANSITION SPECIALIST) TO SEE THE PATIENT. PRIMARY NURSE DI WAS INFORMED.
--- NOTE | 2018-09-20 15:46 | NUR ---
MS RN NOTE RECOMMENDED TELE STATUS FOR PATIENT TO KELSEY ZARCO,CONTINUE WITH MEDSURG.
[2018-09-20] MEDS: ACETAMINOPHEN 325 MG TABLET PO PRN (15:50)
[2018-09-20] MEDS: diphenhydrAMINE HCL ELIX 25 MG/10 ML UDC PO PRN (15:50)
[2018-09-20 16:00] VITALS: BP 107/75
--- NOTE | 2018-09-20 17:22 | NUR ---
MS RN NOTE PATIENT REFUSED ICE PACK APPLICATION.TEMP 100F.PATIENT REFUSED SCHEDULED MEDS FOR NOW.EXPLAINED RISK AND BENEFIT.STILL REFUSING.
[2018-09-20] MEDS: ONDANSETRON HCL/PF 4 MG/2 ML VIAL IVP PRN ×2 (17:35→17:37)
[2018-09-20] MEDS ORDERED: FEE PK DOSING 1 MIN EA MC ONE (17:52)
--- NOTE | 2018-09-20 18:30 | NUR ---
MS RN NOTE SEEN BY KELSEY GONZALEZ,UPDATED ABOUT PATIENT CONDITION,MADE AWARE THAT PATIENT HAS TEMP 100F.
--- NOTE | 2018-09-20 19:18 | NUR ---
MS RN CLOSING NOTES: PATIENT AWAKE IN BED. NO SOB NO DISTRESS NOTED AT THIS TIME.A/O X 3. ABLE TO VERBALIZE NEEDS AND CONCERNS. BASIM MIDLINE PATENT AND INTACT W/ NO S/S OF INFECTION/INFILTRATION NOTED. RIGHT CHEST HD CATHETER INTACT. SAFETY PRECAUTIONS IN PLACE.SITTER AT BEDSIDE . BED IN LOW LOCKED POSITION.SRX2.CALL LIGHT IN REACH.PATIENT WANT TO TALK TO BROTHER KRISTI BY DOCTOR.LEFT MESSAGE TO KELSEY ZARCO WITH CONTACT INFORMATION.ENDORSED TO PM NURSE FOR JUSTIN.
[2018-09-20 20:00] VITALS: BP 114/79
[2018-09-20] MEDS ORDERED: MEROPENEM 500 MG in IV NS 0.9% 50 ML IV SCH (20:00)
--- NOTE | 2018-09-20 20:00 | NUR ---
RN INITIAL NOTES: RECEIVED PT AWAKE IN BED. NO SOB NO DISTRESS NOTED AT THIS TIME. AWAKE A/O X 3. ABLE TO VERBALIZED NEEDS AND CONCERNS. BASIM MIDLINE PATENT AND INTACT W/ NO S/S OF INFECTION/INFILTRATION NOTED. RIGHT CHEST HD CATHETER INTACT. SAFETY PRECAUTIONS IN PLACE. SITTER AT BEDSIDE . BED IN LOW LOCKED POSITION, SRX2. CALL LIGHT IN REACH. WILL CONTINUE TO MONITOR.
[2018-09-20] MEDS ORDERED: VANCOMYCIN 1 GM in IV D5W 250 ML IV ONE (21:00)
[2018-09-21 04:00] VITALS: BP 109/76
--- NOTE | 2018-09-21 06:28 | NUR ---
RN CLOSING NOTES PATIENT AWAKE IN BED. NO SOB NO DISTRESS NOTED AT THIS TIME.A/O X 3. ABLE TO VERBALIZE NEEDS AND CONCERNS. BASIM MIDLINE PATENT AND INTACT W/ NO S/S OF INFECTION/INFILTRATION NOTED. RIGHT CHEST HD CATHETER INTACT. SAFETY PRECAUTIONS IN PLACE.SITTER AT BEDSIDE . BED IN LOW LOCKED POSITION.SRX2.CALL LIGHT IN REACH. ENDORSED TO AM NURSE FOR JUSTIN.
[2018-09-21 07:08] LABS: BASOPHILS % (AUTO) 0.5 % (0.0-2.0); EOSINOPHILS % (AUTO) 1.1 % (0.0-6.0); HEMATOCRIT 29 % (33-45); HEMOGLOBIN 9.4 g/dL (11.5-14.8); LYMPHOCYTES # (AUTO) 0.5 /CMM (0.8-4.8); LYMPHOCYTES % (AUTO) 10.7 % (20.0-44.0); MEAN CORPUSCULAR HGB CONC 32 g/dl (31.0-36.0); MEAN CORPUSCULAR VOLUME 93 fL (82-100); MONOCYTES # (AUTO) 0.4 /CMM (0.1-1.30); MONOCYTES % (AUTO) 7.7 % (2.0-12.0); NEUTROPHILS # (AUTO) 3.8 /CMM (1.8-8.9); PLATELET COUNT (AUTO) 89 /CMM (150-450); RED BLOOD CELL COUNT(AUTO) 3.13 MIL/uL (4.0-5.2); WHITE BLOOD COUNT (AUTO) 4.8 K/uL (4.3-11.0)
[2018-09-21 07:45] LABS: CALCIUM, SERUM 8.7 mg/dL (8.5-10.1); CREATININE 6.3 mg/dL (0.6-1.3); MAGNESIUM 2.1 mg/dL (1.8-2.4); PHOSPHORUS 4.7 mg/dL (2.5-4.9); POTASSIUM 4.4 mmol/L (3.5-5.1)
[2018-09-21 08:17] LABS: EOSINOPHILS % (MANUAL) 1 % (0-4); LYMPHOCYTES % (MANUAL) 8 % (16-48); MONOCYTES % (MANUAL) 6 % (0-11.0); NEUTROPHILS % (MANUAL) 85 (42-76)
[2018-09-21] MEDS: SEVELAMER CARBONATE 0.8 GM POWD.PACK GT SCH (08:21)
[2018-09-21] MEDS: SERTRALINE HCL 25 MG TABLET PO SCH (08:21)
[2018-09-21] MEDS: PANTOPRAZOLE 40 MG TABLET.DR PO SCH (08:21)
[2018-09-21] MEDS: FERROUS SULFATE (325 MG) 325 MG/TAB TABLET PO SCH (08:21)
[2018-09-21] MEDS: FOLIC ACID 1 MG TABLET PO SCH (08:21)
[2018-09-21] MEDS: CALCITRIOL 0.25 MCG CAPSULE PO SCH (08:21)
[2018-09-21] MEDS: LOSARTAN POTASSIUM 25 MG TABLET PO SCH (08:24)
[2018-09-21] MEDS: UREA 10% -AHA 4% CREAM 57 GM TUBE TP SCH (08:24)
--- NOTE | 2018-09-21 09:00 | NUR ---
RN NOTE PATIENT IS COMPLAINING THAT SHE WANTS TO GO HOME. RN EXPLAIN IMPORTANCE OF MEDICAL TREATMENT, ALSO THAT SHE MAY LEAVE IF SHE REFUSES AND TO PLEASE SIGN AMA FORM. BLAISE REFUSED ALL OF HER MORNING MEDICATOION, BEING RUDE AND COMBATIVE WITH STAFF. RN SPOKE TO BROTHER AND INFORMED HIM OF IMPORTANCE OF BLAISE TO STAY IN HOSPITAL. CARDIOLOGY SAW BLAISE AND EXPLAINED IMPORTANCE OF HOSPITALIZATION. RN CONTACTED PLUMBING INSTALLER , PLUMBING INSTALLER AWARE BLAISE WANTS TO LEAVE AMA. PLUMBING INSTALLER WILL BE HERE TODAY TO SEE THE PATIENT IN PERSON. XAVI IS ON HIS WAY TO SEE PATIENT. VITALS STABLE WNL, SAFETY MEASURES IN PLACE
[2018-09-21] MEDS ORDERED: CARVEDILOL 3.125 MG TABLET PO SCH (09:30)
[2018-09-21 09:45] VITALS: BP 130/79
--- NOTE | 2018-09-21 11:37 | NUR ---
RN AM SHIFT NOTE PATIENT AWAKE ALERT AND IS COMPLAINING THAT SHE WANTS TO GO HOME. RN EXPLAINED IMPORTANCE OF CONTINUING HOSPITALIZATION. RN EXPLAINED IMPORTANCE OF DIALYSIS COMPLIANCE WELL MEDICATION COMPLACENCE. MIDLINE PATENT AND INTACT, PATIENT ATE 25% OF BREAKFAST. SITTER AT BEDSIDE, [place] SAFETY OF PATIETN.
[2018-09-21] MEDS ORDERED: SEVE0.8P GT (13:24)
[2018-09-21] MEDS ORDERED: CARV3.122 PO (13:24)
[2018-09-21] MEDS ORDERED: SERT25TA5 PO (13:24)
--- NOTE | 2018-09-21 14:17 | NUR ---
RN CLOSING NOTE PATIENT LEAVING AGAINST MEDICAL ADVICE, FAMILY AT BEDSIDE, IMPORTANCE TO FOLLOW DIALYSIS AND MEDICAL REGIMEN REINFORCED TO PATIENT, PATIENT REFUSED MEDICATION THROUGH OUT THE DAY, MD AWARE, FAMILY AWARE. PATIENT MIDLINE D/C BEFORE FAMILY ASSISTED HER WITH EXIT. PATIENT VITALS DOCUMENTED.
[2018-09-21] MEDS ORDERED: VANCOMYCIN 500 MG in IV D5W 100 ML IV PRN (18:00)
[2018-09-22 11:09] LABS: *CARD ANTI-CARDIOLIPIN AB IgA <9 APL U/mL (0-11); *CARD ANTI-CARDIOLIPIN AB IgG 12 GPL U/mL (0-14); *CARD ANTI-CARDIOLIPIN AB IgM <9 MPL U/mL (0-12)
== END 2018-09-21 13:35 | disposition left against medical advice (07) | DRG 282 ==
LOC: TELE1 15:32 → MEDSG1 09-16 09:00
PROVIDERS: ADMIT Nurse Practitioner Acute Care; ATTEND Nurse Practitioner Acute Care
PROC: B546ZZA Ultrasonography of Right Subclavian Vein, Guidance (ICD-10-PCS; principal; 2018-09-13)
PROC: 05H533Z Insertion of Infusion Device into Right Subclavian Vein, Percutaneous Approach (ICD-10-PCS; principal; 2018-09-13)
PROC: 5A1D70Z Performance of Urinary Filtration, Intermittent, Less than 6 Hours Per Day (ICD-10-PCS; 2018-09-14)
PROC: 5A1D70Z Performance of Urinary Filtration, Intermittent, Less than 6 Hours Per Day (ICD-10-PCS; 2018-09-15)
PROC: 5A1D70Z Performance of Urinary Filtration, Intermittent, Less than 6 Hours Per Day (ICD-10-PCS; 2018-09-17)
PROC: 0W9G3ZZ Drainage of Peritoneal Cavity, Percutaneous Approach (ICD-10-PCS; 2018-09-18)
PROC: 5A1D70Z Performance of Urinary Filtration, Intermittent, Less than 6 Hours Per Day (ICD-10-PCS; 2018-09-19)
PROC: 5A1D70Z Performance of Urinary Filtration, Intermittent, Less than 6 Hours Per Day (ICD-10-PCS; 2018-09-20)
DX: K85.90 Acute pancreatitis without necrosis or infection, unspecified (principal); I13.2 Hypertensive heart and chronic kidney disease with heart failure and with stage 5 chronic kidney disease, or end stage renal disease; J15.9 Unspecified bacterial pneumonia; J90 Pleural effusion, not elsewhere classified; F33.3 Major depressive disorder, recurrent, severe with psychotic symptoms; I27.20 Pulmonary hypertension, unspecified; I42.9 Cardiomyopathy, unspecified; I50.9 Heart failure, unspecified; E87.5 Hyperkalemia; R16.2 Hepatomegaly with splenomegaly, not elsewhere classified; N18.6 End stage renal disease; R18.8 Other ascites; Z99.2 Dependence on renal dialysis; M94.0 Chondrocostal junction syndrome [Tietze]; D63.8 Anemia in other chronic diseases classified elsewhere; Z91.5 Personal history of self-harm; E87.1 Hypo-osmolality and hyponatremia; Z88.0 Allergy status to penicillin; R00.0 Tachycardia, unspecified; R74.0 Nonspecific elevation of levels of transaminase and lactic acid dehydrogenase [LDH]; K76.6 Portal hypertension; K76.0 Fatty (change of) liver, not elsewhere classified
CPT/HCPCS: 36415; 36569; 71045-TC; 74150-TC; 74178; 76700-TC; 76942-TC; 80048-TC; 80053-TC; 80061-TC; 80076-TC; 80202-TC; 82040-TC; 82150-TC; 82247-TC; 82248-TC; 82378; 82784; 82945-TC; 82962-TC; 83516; 83690-TC; 83735-TC; 84100-TC; 84155-TC; 84702-TC; 85025-TC; 85610-TC; 85730-TC; 86140-TC; 86147; 86301; 86704; 86705; 86706; 86803; 87040-TC; 87070-TC; 87081-TC; 87340; 88305-TC; 88312-TC; 90935-TC; 93307-TC; 97116-TC; 97530-TC; A4216; C9113; G0378; J1170; J2185; J2270; J2405; J3370; J7030; J7050; J7060; Q0163; Q9967